=== PATIENT | male | born 1935 | race Caucasian/White ===

== ENCOUNTER 2019-01-07 09:20 | Emergency (ER) | payer MEDICARE ==
[~2019-01-07] VITALS: Ht 177.8 cm; Wt 100.0 kg
[~2019-01-07 09:20] MED LIST: AMLODIPINE10 MG PO; ASPIRIN81 MG PO; CLARITIN10 M2 PO; DIOVAN160 MG PO; DORZOLAMIDE HCL/1 ML OP; DOXAZOSIN4 MG PO; FLUTICASONE PR50 MCG; FUROSEMIDE40 MG PO; LUMIGAN0.01 % OP; METO25TAB PO; MUCINEX600 MG PO; NAPROXEN250 MG PO; OXYCODONE/ACETA1 TA1 PO; POT CHLORIDE20 ME3 PO; PRAVACHOL40 MG PO; PRILOSEC20 MG/CAP PO; PROVENTIL HFA INH; SYMBICORT1 AE1 IN; TRAMADOL HCL50 MG PO; TYLENOL 325MG SUP PO; TYLENOL 8 HOUR650 MG
[2019-01-07 10:37] LABS: HEMATOCRIT 36.4 % (39.0-50.0); HEMOGLOBIN 12.3 g/dl (14.0-18.0); IMMATURE GRANULOCYTES 0.4 % (0.0-5.0); MEAN CELL VOLUME 92.4 fL CALC (80.0-100.0); MEAN CORPUSCULAR HGB 31.2 pG CALC (26.0-32.0); MEAN CORPUSCULAR HGB CONC 33.8 g/L CALC (32.0-36.0); NEUT# 2.79 thou/uL (1.82-7.42); RED BLOOD COUNT 3.94 mill/uL (4.70-6.10)
[2019-01-07 10:47] LABS: ALBUMIN 3.8 g/dL (3.2-5.0); ALKALINE PHOSPHATASE 101 u/l (38-126); ANION GAP 12 (6-22 (CALC)); BILIRUBIN, TOTAL 1.1 mg/dL (0.0-1.4); BUN 16 mg/dL (8-23); BUN/CREATININE RATIO 27 (12-20 (CALC)); CARBON DIOXIDE 27 mmol/l (22-30); CHLORIDE 104 mmol/l (95-108); CREATININE 0.6 mg/dL (0.7-1.3); GFR > 60 ML/MIN (>=60 (CALC)); GFR FOR AFR.AMER. > 60 ML/MIN (>=60 (CALC)); POTASSIUM 3.7 mmol/l (3.5-5.1); SGOT/AST 21 u/l (19-48); SODIUM 139 mmol/l (137-146); TOTAL PROTEIN 6.4 g/dL (6.3-8.2)
[2019-01-07] MEDS ORDERED: LOSARTAN POT25 MG PO (11:02)
[2019-01-07] MEDS ORDERED: DOXYCYCL HYC100 MG PO (12:07)
[2019-01-07] MEDS ORDERED: TORADOL PO (12:07)
[2019-01-07 12:12] VITALS: BP 158/66
== END 2019-01-07 12:32 | disposition home or self-care (01) ==
LOC: ED 09:20
PROVIDERS: Emergency Medicine
DX: L08.9 Local infection of the skin and subcutaneous tissue, unspecified (principal); R22.1 Localized swelling, mass and lump, neck
CPT/HCPCS: Q9967

== ENCOUNTER 2019-10-17 | Day surgery (SDC) | payer MEDICARE ==
[~2019-10-17] MED LIST changes: +DOXYCYCL HYC100 MG PO; +FLONASE AL50 MCG/AC1; -FLUTICASONE PR50 MCG; +LOSARTAN POT25 MG PO; +TORADOL PO
[2019-10-17] MEDS ORDERED: FINASTERIDE5 MG PO (06:43)
[2019-10-17] MEDS ORDERED: FAMOTIDINE20 M1 PO (06:43)
[2019-10-17] MEDS ORDERED: TIZANIDINE HYDRO4 M1 PO (06:44)
[2019-10-17] MEDS ORDERED: TIMOLOL MALEATE10 MG PO (06:46)
[2019-10-17] MEDS ORDERED: XELPROS0.005 % OT (06:48)
[2019-10-17] MEDS ORDERED: ALLEGRA60 MG PO (06:49)
[2019-10-17] MEDS ORDERED: COQ-10100 M1 PO (06:50)
[2019-10-17] MEDS ORDERED: OMEGA 31000 MG PO (06:50)
[2019-10-17] MEDS ORDERED: VITAMIN A PO (06:51)
[2019-10-17] MEDS ORDERED: [UNRECOGNIZED DRUG - OTHER] PO (06:51)
[2019-10-17] MEDS ORDERED: CHELATED MAGNE100 MG PO (06:52)
[2019-10-17] MEDS ORDERED: TURMERIC CURCUM1 CAP PO (06:52)
[2019-10-17] MEDS ORDERED: CORDYCEPS PO (06:55)
[2019-10-17] MEDS ORDERED: SAM-E200 M1 PO (06:56)
[2019-10-17] MEDS ORDERED: [UNRECOGNIZED DRUG - OTHER] PO (06:56)
[2019-10-17] MEDS ORDERED: [UNRECOGNIZED DRUG - OTHER] PO (06:57)
[2019-10-17] MEDS ORDERED: GLUCOSAMINE PO (07:00)
[2019-10-17] MEDS ORDERED: VIT PO (07:00)
[2019-10-17] MEDS ORDERED: TRAMADOL HCL50 MG PO (07:00)
== END 2019-10-17 08:35 | disposition home or self-care (01) ==
DX: M70.72 Other bursitis of hip, left hip (principal); G57.02 Lesion of sciatic nerve, left lower limb
CPT/HCPCS: Q9967

== ENCOUNTER 2019-10-31 | Day surgery (SDC) | payer MEDICARE ==
[~2019-10-31] MED LIST changes: +ALLEGRA60 MG PO; +CHELATED MAGNE100 MG PO; +COQ-10100 M1 PO; +CORDYCEPS PO; +FAMOTIDINE20 M1 PO; +FINASTERIDE5 MG PO; +GLUCOSAMINE PO; +OMEGA 31000 MG PO; +SAM-E200 M1 PO; +TIMOLOL MALEATE10 MG PO; +TIZANIDINE HYDRO4 M1 PO; +TURMERIC CURCUM1 CAP PO; +VIT PO; +VITAMIN A PO; +XELPROS0.005 % OT; +[UNRECOGNIZED DRUG - OTHER] PO; +[UNRECOGNIZED DRUG - OTHER] PO; +[UNRECOGNIZED DRUG - OTHER] PO
== END 2019-10-31 09:35 | disposition home or self-care (01) ==
DX: M70.61 Trochanteric bursitis, right hip (principal); G57.01 Lesion of sciatic nerve, right lower limb
CPT/HCPCS: Q9967

== ENCOUNTER 2022-01-21 05:53 | Inpatient (IN) | payer MEDICARE ==
[2022-01-21] VITALS (56 sets, daily range): BP systolic 115–213; BP diastolic 53–134
[~2022-01-21] VITALS: Ht 177.8 cm; Wt 92.1 kg
[~2022-01-21 05:53] MED LIST changes: +ADULT ASPIRIN R81 MG PO; -ALLEGRA60 MG PO; -ASPIRIN81 MG PO; +CHEST CONGESTI400 MG PO; +FEXOFENADINE PO; -METO25TAB PO; -MUCINEX600 MG PO; +TOPROL XL50 MG PO
[2022-01-21 06:19] LABS: HEMATOCRIT 42.6 % (39.0-50.0); HEMOGLOBIN 14.2 g/dl (14.0-18.0); IMMATURE GRANULOCYTES 0.1 % (0.0-5.0); MEAN CORPUSCULAR HGB 32.3 pG CALC (26.0-32.0); MEAN CORPUSCULAR HGB CONC 33.3 g/dL CAL (32.0-36.0); NEUT# 6.11 thou/uL (1.82-7.42); RED BLOOD COUNT 4.39 mill/uL (4.70-6.10); RED CELL DISTRI WIDTH 12.9 % (11.5-15.5)
[2022-01-21] MEDS ORDERED: HYZAAR1 TAB PO (06:33)
[2022-01-21] MEDS ORDERED: NORVASC5 M1 PO (06:35)
[2022-01-21] MEDS ORDERED: [UNRECOGNIZED DRUG - OTHER] (06:37)
[2022-01-21] MEDS ORDERED: VITAMIN E400 UNI3 PO (06:38)
[2022-01-21 06:40] LABS: ACT PARTIAL THROMBO TIME 22.4 SECONDS (20.0-32.5); INTERNATIONAL NORMALIZED RATIO 1.1 RATIO (0.7-1.3)
[2022-01-21 06:42] LABS: ALBUMIN 4.3 g/dL (3.2-5.0); ALKALINE PHOSPHATASE 103 u/l (38-126); BUN 10 mg/dL (8-23); BUN/CREATININE RATIO 22 (12-20 (CALC)); CHLORIDE 105 mmol/l (95-108); CREATININE 0.5 mg/dL (0.7-1.3); GFR > 60 ML/MIN (>=60 (CALC)); GFR FOR AFR.AMER. > 60 ML/MIN (>=60 (CALC)); LIPASE 48 u/l (23-300); SGOT/AST 38 u/l (19-48); SODIUM 138 mmol/l (137-146)
[2022-01-21 06:48] LABS: ANION GAP 17 (6-22 (CALC)); BILIRUBIN, TOTAL 2.4 mg/dL (0.0-1.4); CARBON DIOXIDE 20 mmol/l (22-30)
[2022-01-21 07:35] LABS: URINE BILIRUBIN - DIPSTICK NEGATIVE (NEGATIVE); URINE BLOOD DIPSTICK SMALL (NEGATIVE); URINE COLOR YELLOW; URINE GLUCOSE - DIPSTICK NEGATIVE (NEGATIVE); URINE KETONE 15 mg/dL (NEGATIVE); URINE LEUK ESTERASE NEGATIVE (NEGATIVE); URINE NITRITE - DIPSTICK NEGATIVE (Negative); URINE PROTEIN - DIPSTICK >=300 mg/dL (NEG-TRACE); URINE SQUAMOUS EPITHELIAL CELL FEW EPI/hpf (0-FEW); URINE UROBILINOGEN - DIPSTICK 0.2 E.U./dL (0.2)
[2022-01-21] MEDS ORDERED: ALBUTEROL SUL0.083 % IN (10:04)
[2022-01-21] MEDS ORDERED: DULERA1 AE1 IN (10:06)
== END 2022-01-21 20:35 | disposition short-term general hospital (02) | DRG 291 ==
LOC: ED 05:53 → ED-I 06:08 → ED 07:45 → ICU 07:45
PROVIDERS: ADMIT Internal Medicine; ATTEND Internal Medicine
PROC: 5A09357 Assistance with Respiratory Ventilation, Less than 24 Consecutive Hours, Continuous Positive Airway Pressure (ICD-10-PCS; principal; 2022-01-21)
DX: I11.0 Hypertensive heart disease with heart failure (principal); J18.9 Pneumonia, unspecified organism; J96.01 Acute respiratory failure with hypoxia; I50.9 Heart failure, unspecified; I48.91 Unspecified atrial fibrillation; I16.0 Hypertensive urgency; R79.89 Other specified abnormal findings of blood chemistry; J45.909 Unspecified asthma, uncomplicated; N40.0 Benign prostatic hyperplasia without lower urinary tract symptoms; Z86.16 Personal history of COVID-19; Z95.3 Presence of xenogenic heart valve; Z20.822 Contact with and (suspected) exposure to COVID-19
CPT/HCPCS: J1650

== ENCOUNTER 2022-04-10 09:42 | Emergency (ER) | payer MEDICARE ==
[2022-04-10] VITALS (10 sets, daily range): BP systolic 160–179; BP diastolic 76–101
[~2022-04-10] VITALS: Ht 177.8 cm; Wt 87.2 kg
[~2022-04-10 09:42] MED LIST changes: +ALBUTEROL SUL0.083 % IN; +DULERA1 AE1 IN; +HYZAAR1 TAB PO; +NORVASC5 M1 PO; +VITAMIN E400 UNI3 PO; +[UNRECOGNIZED DRUG - OTHER]
[2022-04-10 10:06] LABS: URINE BILIRUBIN - DIPSTICK NEGATIVE (NEGATIVE); URINE BLOOD DIPSTICK NEGATIVE (NEGATIVE); URINE COLOR YELLOW; URINE GLUCOSE - DIPSTICK NEGATIVE (NEGATIVE); URINE KETONE NEGATIVE (NEGATIVE); URINE LEUK ESTERASE NEGATIVE (NEGATIVE); URINE PROTEIN - DIPSTICK NEGATIVE (NEG-TRACE); URINE UROBILINOGEN - DIPSTICK 0.2 E.U./dL (0.2)
[2022-04-10 10:07] LABS: HEMATOCRIT 33.7 % (39.0-50.0); HEMOGLOBIN 10.8 g/dl (14.0-18.0); IMMATURE GRANULOCYTES 0.1 % (0.0-5.0); MEAN CELL VOLUME 98.3 fL CALC (80.0-100.0); MEAN CORPUSCULAR HGB 31.5 pG CALC (26.0-32.0); NEUT# 6.05 thou/uL (1.82-7.42); RED BLOOD COUNT 3.43 mill/uL (4.70-6.10); RED CELL DISTRI WIDTH 14.1 % (11.5-15.5)
[2022-04-10 10:09] LABS: URINE NITRITE - DIPSTICK NEGATIVE (Negative)
[2022-04-10] MEDS ORDERED: ELIQUIS5 MG PO (10:09)
[2022-04-10] MEDS ORDERED: CORDARONE/PACE100 MG PO (10:10)
[2022-04-10] MEDS ORDERED: TAMSULOSIN HCL0.4 MG PO (10:11)
[2022-04-10] MEDS ORDERED: LASIX40 MG PO (10:12)
[2022-04-10 10:21] LABS: ALBUMIN 3.5 g/dL (3.2-5.0); ALKALINE PHOSPHATASE 118 u/l (38-126); ANION GAP 7 (6-22 (CALC)); BILIRUBIN, TOTAL 1.4 mg/dL (0.0-1.4); BUN 17 mg/dL (8-23); BUN/CREATININE RATIO 28 (12-20 (CALC)); CARBON DIOXIDE 33 mmol/l (22-30); CHLORIDE 99 mmol/l (95-108); CREATININE 0.6 mg/dL (0.7-1.3); GFR FOR AFR.AMER. > 60 ML/MIN (>=60 (CALC)); GFR OTHER RACES > 60 ML/MIN (>=60 (CALC)); LIPASE 31 u/l (23-300); POTASSIUM 3.7 mmol/l (3.5-5.1); SGOT/AST 26 u/l (19-48); SODIUM 135 mmol/l (137-146); TOTAL PROTEIN 6.5 g/dL (6.3-8.2)
[2022-04-10] MEDS ORDERED: METOPROL TAR25 MG PO (10:37)
[2022-04-10] MEDS ORDERED: KLOR-CON M2020 MEQ PO (10:37)
== END 2022-04-10 13:55 | disposition left against medical advice (07) ==
LOC: ED 09:42
PROVIDERS: Family Medicine
DX: I11.0 Hypertensive heart disease with heart failure (principal); I50.9 Heart failure, unspecified; J18.9 Pneumonia, unspecified organism; Z91.19 Patient's noncompliance with other medical treatment and regimen; Z95.2 Presence of prosthetic heart valve; Z20.822 Contact with and (suspected) exposure to COVID-19
CPT/HCPCS: Q9967

== ENCOUNTER 2022-05-01 10:41 | Emergency (ER) | payer MEDICARE ==
[~2022-05-01] VITALS: Ht 177.8 cm; Wt 82.1 kg
[~2022-05-01 10:41] MED LIST changes: +CORDARONE/PACE100 MG PO; +ELIQUIS5 MG PO; +KLOR-CON M2020 MEQ PO; +LASIX40 MG PO; +METOPROL TAR25 MG PO; +TAMSULOSIN HCL0.4 MG PO
[2022-05-01 10:58] VITALS: BP 164/72
[2022-05-01 11:09] VITALS: BP 160/62
[2022-05-01 11:21] LABS: GFR FOR AFR.AMER. > 60 ML/MIN (>=60 (CALC)); GFR OTHER RACES > 60 ML/MIN (>=60 (CALC))
[2022-05-01 11:22] LABS: IMMATURE GRANULOCYTES 0.1 % (0.0-5.0); MEAN CELL VOLUME 96.5 fL CALC (80.0-100.0); MEAN CORPUSCULAR HGB 31.1 pG CALC (26.0-32.0); MEAN CORPUSCULAR HGB CONC 32.2 g/dL CAL (32.0-36.0); NEUT# 6.18 thou/uL (1.82-7.42); RED BLOOD COUNT 2.83 mill/uL (4.70-6.10); RED CELL DISTRI WIDTH 14.4 % (11.5-15.5)
[2022-05-01 11:23] LABS: HEMATOCRIT 27.3 % (39.0-50.0); HEMOGLOBIN 8.8 g/dl (14.0-18.0)
[2022-05-01 11:31] VITALS: BP 152/63
[2022-05-01 11:33] LABS: ALBUMIN 3.6 g/dL (3.2-5.0); ALKALINE PHOSPHATASE 102 u/l (38-126); ANION GAP 10 (6-22 (CALC)); BILIRUBIN, TOTAL 1.7 mg/dL (0.0-1.4); BUN 14 mg/dL (8-23); BUN/CREATININE RATIO 23 (12-20 (CALC)); CARBON DIOXIDE 31 mmol/l (22-30); CHLORIDE 99 mmol/l (95-108); CREATININE 0.6 mg/dL (0.7-1.3); GFR FOR AFR.AMER. > 60 ML/MIN (>=60 (CALC)); GFR OTHER RACES > 60 ML/MIN (>=60 (CALC)); LIPASE 35 u/l (23-300); POTASSIUM 4.4 mmol/l (3.5-5.1); SGOT/AST 23 u/l (19-48); SODIUM 135 mmol/l (137-146); TOTAL PROTEIN 6.6 g/dL (6.3-8.2)
[2022-05-01 12:31] VITALS: BP 156/59
[2022-05-01] MEDS ORDERED: ZOFRAN4 MG/TAB PO (12:45)
[2022-05-01 13:01] VITALS: BP 158/59
[2022-05-01 13:08] VITALS: BP 158/59
== END 2022-05-01 13:24 | disposition home or self-care (01) ==
LOC: ED 10:41
PROVIDERS: Family Medicine
DX: M79.81 Nontraumatic hematoma of soft tissue (principal); T45.515A Adverse effect of anticoagulants, initial encounter; T39.015A Adverse effect of aspirin, initial encounter; I10 Essential (primary) hypertension; Z79.01 Long term (current) use of anticoagulants; Z79.82 Long term (current) use of aspirin; Z95.2 Presence of prosthetic heart valve
CPT/HCPCS: Q9967

== ENCOUNTER 2023-10-13 05:03 | Emergency (ER) | payer MEDICARE ==
[~2023-10-13] VITALS: Ht 177.8 cm; Wt 65.0 kg
[~2023-10-13 05:03] MED LIST changes: +ZOFRAN4 MG/TAB PO
[2023-10-13 05:44] LABS: URINE BILIRUBIN - DIPSTICK Negative (NEGATIVE); URINE BLOOD DIPSTICK Trace-intact (NEGATIVE); URINE GLUCOSE - DIPSTICK Negative (NEGATIVE); URINE KETONE 40 mg/dL (NEGATIVE); URINE LEUK ESTERASE Negative (NEGATIVE); URINE NITRITE - DIPSTICK Negative (Negative); URINE PH 6.5 (4.5-8.0); URINE PROTEIN - DIPSTICK Negative (NEG-TRACE); URINE UROBILINOGEN - DIPSTICK 0.2 E.U./dL (0.2)
[2023-10-13 05:45] LABS: URINE COLOR Yellow
[2023-10-13 05:46] LABS: BASO% 0.2 % (0-3); HEMATOCRIT 31.8 % (39.0-50.0); HEMOGLOBIN 10.7 g/dl (14.0-18.0); LYMPH% 19.7 % (15-41); MEAN CELL VOLUME 96.1 fL CALC (80.0-100.0); MEAN CORPUSCULAR HGB 32.3 pG CALC (26.0-32.0); MEAN CORPUSCULAR HGB CONC 33.6 g/dL CAL (32.0-36.0); MONO% 9.1 % (2-13); NEUT# 4.24 thou/uL (1.82-7.42); RED BLOOD COUNT 3.31 mill/uL (4.70-6.10); RED CELL DISTRI WIDTH 12.5 % (11.5-15.5)
[2023-10-13 06:01] VITALS: BP 126/78
[2023-10-13 06:04] LABS: ALBUMIN 3.7 g/dL (3.2-5.0); ALKALINE PHOSPHATASE 65 u/l (38-126); ANION GAP 8 (6-22 (CALC)); BUN 16 mg/dL (8-23); BUN/CREATININE RATIO 33 (12-20 (CALC)); CARBON DIOXIDE 26 mmol/l (22-30); CHLORIDE 105 mmol/l (95-108); CREATININE 0.5 mg/dL (0.7-1.3); GFR FOR AFR.AMER. > 60 ML/MIN (>=60 (CALC)); GFR OTHER RACES > 60 ML/MIN (>=60 (CALC)); SGOT/AST 29 u/l (19-48); SODIUM 135 mmol/l (137-146); TOTAL PROTEIN 5.9 g/dL (6.3-8.2)
[2023-10-13 06:05] LABS: BILIRUBIN, TOTAL 1.6 mg/dL (0.2-1.3)
[2023-10-13] MEDS ORDERED: MORPHINE SULFATE 4 MG/ML VIAL IV ONE ×2 (06:40→09:50)
[2023-10-13 07:00] VITALS: BP 128/68
[2023-10-13] MEDS ORDERED: DEXTROSE 5% w/NACL 0.45 1,000 ML IV ONE (07:48)
[2023-10-13 08:01] VITALS: BP 133/74
[2023-10-13 09:01] VITALS: BP 149/76
[2023-10-13 10:11] VITALS: BP 149/76
== END 2023-10-13 10:12 | disposition short-term general hospital (02) ==
LOC: ED 05:03
PROVIDERS: Emergency Medicine
DX: S72.145A Nondisplaced intertrochanteric fracture of left femur, initial encounter for closed fracture (principal); I10 Essential (primary) hypertension; W01.0XXA Fall on same level from slipping, tripping and stumbling without subsequent striking against object, initial encounter; Y92.009 Unspecified place in unspecified non-institutional (private) residence as the place of occurrence of the external cause; Z95.1 Presence of aortocoronary bypass graft; Z95.2 Presence of prosthetic heart valve; Z20.822 Contact with and (suspected) exposure to COVID-19

== ENCOUNTER 2024-11-08 09:42 | Day surgery (SDC) | payer MEDICARE ==
[~2024-11-08 09:42] MED LIST changes: +ALLEGRA-D 2424 HOUR PO; +AMLODIPINE BESY10 MG PO; +COQ10100 MG PO; +CVS MELATONIN; +FLUTICASONE; +MAGNESIUM500 M3 PO; +NITROSTAT0.4 MG SL; +VITAMIN C PO; +[UNRECOGNIZED DRUG - OTHER] PO; +[UNRECOGNIZED DRUG - OTHER] PO
[2024-11-08] MEDS ORDERED: SODIUM CHLORIDE 0.9% 100 ML IV ONE (09:45)
[2024-11-08] MEDS ORDERED: FAMOTIDINE 10MG/ML 2ML SDV IV ONE (09:45)
[2024-11-08] MEDS ORDERED: ceFAZolin Sodium 2 GM/VIAL SDV ONE (09:45)
[2024-11-08] MEDS ORDERED: LACTATED RINGER'S 1,000 ML IV ONE ×2 (09:45→13:02)
[2024-11-08] MEDS ORDERED: SODIUM CHLORIDE 1,000 ML BTL IR ONE (10:19)
[2024-11-08] MEDS ORDERED: BUPIVACAINE 133 MG/10 ML VIAL IJ ONE (10:19)
[2024-11-08] MEDS ORDERED: STERILE WATER FOR IRRIGATION 500 ML BTL IR ONE (10:19)
[2024-11-08] MEDS ORDERED: SODIUM CHLORIDE 20 ML/VIAL SDV ONE (10:20)
[2024-11-08 10:28] LABS: BASO% 0.2 % (0-3); EOS% 0.6 % (0-8); LYMPH% 20.1 % (15-41); MEAN CELL VOLUME 95.4 fL CALC (80.0-100.0); MEAN CORPUSCULAR HGB 32.1 pG CALC (26.0-32.0); MEAN CORPUSCULAR HGB CONC 33.7 g/dL CAL (32.0-36.0); MONO% 8.7 % (2-13); NEUT# 3.57 thou/uL (1.82-7.42); NEUT% 70.4 % (42-76); RED BLOOD COUNT 4.11 mill/uL (4.70-6.10); RED CELL DISTRI WIDTH 12.7 % (11.5-15.5)
[2024-11-08 10:29] LABS: HEMATOCRIT 39.2 % (39.0-50.0); HEMOGLOBIN 13.2 g/dl (14.0-18.0)
[2024-11-08 10:46] LABS: ACT PARTIAL THROMBO TIME 27.1 SECONDS (20.0-32.5); INTERNATIONAL NORMALIZED RATIO 1.1 RATIO (0.7-1.3); PROTHROMBIN TIME 11.7 SECONDS (9.0-12.5)
[2024-11-08] MEDS ORDERED: PERCOCET 5/325M1 TAB PO (11:51)
[2024-11-08] MEDS ORDERED: PROPOFOL 200 MG/20 ML VIAL IV ONE (12:15)
[2024-11-08] MEDS ORDERED: REMIMAZOLAM BESYLATE 20 MG/VIAL INJ IV ONE (12:15)
[2024-11-08] MEDS ORDERED: ACETAMINOPHEN 100 ML IV ONE (12:52)
[2024-11-08] MEDS ORDERED: KETOROLAC TROMETHAMINE 15 MG/ML SDV ONE (12:52)
[2024-11-08 14:30] VITALS: BP 149/62
== END 2024-11-08 14:17 | disposition home or self-care (01) ==
LOC: ORM 09:42
PROVIDERS: Nurse Anesthetist, Certified Registered; ATTEND Surgery
PROC: 0YU50JZ Supplement Right Inguinal Region with Synthetic Substitute, Open Approach (ICD-10-PCS; principal; 2024-11-08)
DX: K40.90 Unilateral inguinal hernia, without obstruction or gangrene, not specified as recurrent (principal); D17.6 Benign lipomatous neoplasm of spermatic cord; K59.00 Constipation, unspecified; I10 Essential (primary) hypertension; I48.91 Unspecified atrial fibrillation; E78.5 Hyperlipidemia, unspecified; J45.20 Mild intermittent asthma, uncomplicated; Z95.1 Presence of aortocoronary bypass graft; Z95.2 Presence of prosthetic heart valve
CPT/HCPCS: J0131; J0666; J0690; J1885; J2249